=== PATIENT | female | born 1995 | race Two or more races ===

== ENCOUNTER 2016-08-02 17:19 | Emergency (ER) | payer OTHER ==
[2016-08-02] MEDS ORDERED: Pantoprazole IV* 40 MG IV ONE (17:36)
[2016-08-02] MEDS ORDERED: Sucralfate TAB* 1 GM PO ONE (17:36)
[2016-08-02 18:23] LABS: Hematocrit 42 % (35-47); Hemoglobin 13.8 g/dl (12.0-16.0); Mean Corpuscular HGB Conc 33 g/dl (31-36); Mean Corpuscular Hemoglobin 26 pg (27-31); Mean Corpuscular Volume 79 fL (80-97); Mean Platelet Volume 7 um3 (7.4-10.4); Red Blood Count 5.31 10^6/ul (4.0-5.4); Red Cell Distribution Width 14 % (10.5-15); White Blood Count 6.5 10^3/ul (3.5-10.8)
[2016-08-02 18:34] LABS: Urine Bacteria Absent (Absent); Urine Bilirubin 1+ (Negative); Urine Glucose Negative (Negative); Urine Nitrite Negative (Negative)
[2016-08-02 18:42] LABS: ALT 14 U/L (7-52); Albumin 4.5 g/dL (3.2-5.2); Alkaline Phosphatase 65 U/L (34-104); BUN/Creatinine Ratio 13.5 (8-20); Blood Urea Nitrogen 12 mg/dL (6-24); C Reactive Protein 3.05 mg/L (< 5.00); CO2 Carbon Dioxide 29 mmol/L (22-32); Calcium 9.8 mg/dL (8.6-10.3); Chloride 101 mmol/L (101-111); EGFR Non-African American 80.1 (>60); Globulin 3.8 g/dL (2-4); Glucose 95 mg/dL (70-100); Lipase 14 U/L (11.0-82.0); Sodium 135 mmol/L (133-145); Total Protein 8.3 g/dL (6.4-8.9)
--- NOTE | 2016-08-02 19:03 | ED ---
Luis Francisco Billy, scribed for Remigio Avina MD on 08/02/16 at 1735 . Abdominal Pain/Female - HPI Summary HPI Summary: Patient is a 20 year-old female coming to [facility] presenting with constant epigastric abdominal pain since midnight today. Pain severity 3/10. Patient states that the pain is worse with intermittent waves of cramping. Patient reports that her pain became noticeably worse at 1300 today. She reports intermittent nausea with 1x episode of vomiting today. She also states that she has been constipated for the last several days. Denies any diarrhea or urinary symptoms. Patient denies significant PMHx or PSHx relevant to her current symptoms. LMP ended 2 days ago, normal. - History of Current Complaint Chief Complaint: EDAbdPain Stated Complaint: ABD PAIN Time Seen by Provider: 08/02/16 17:27 Hx Obtained From: Patient Onset/Duration: Gradual Onset, Lasting Hours, Still Present, Worse Since - 1300 today Timing: Constant Severity Initially: Moderate Severity Currently: Moderate Pain Intensity: 3 Pain Scale Used: 0-10 Numeric Location: Epigastric Radiates: No Character: Cramping Aggravating Factor(s): Nothing Alleviating Factor(s): Nothing Associated Signs and Symptoms: Positive: Constipation, Nausea, Vomiting. Negative: Urinary Symptoms, Diarrhea Allergies/Adverse Reactions: Allergies Allergy/AdvReac Type Severity Reaction Status Date / Time No Known Allergies Allergy Verified 08/02/16 17:43 PMH/Surg Hx/FS Hx/Imm Hx Respiratory History: Reports: Hx Asthma Neurological History: Reports: Hx Migraine Infectious Disease History: No Infectious Disease History: Reports: Traveled Outside the [place] in Last 30 Days - [facility] - Family History Known Family History: Positive: Hypertension - Social History Occupation: Student Alcohol Use: None Hx Substance Use: No Substance Use Type: Reports: None Hx Tobacco Use: No Smoking Status (MU): Never Smoked Tobacco Review of Systems Positive: Abdominal Pain, Vomiting, Nausea, Other - constipation. Negative: Diarrhea Negative: dysuria, frequency, urgency All Other Systems Reviewed And Are Negative: Yes Physical Exam Triage Information Reviewed: Yes Vital Signs On Initial Exam: Initial Vitals Temp Pulse Resp BP Pulse Ox 98.8 F 82 18 129/71 100 08/02/16 17:22 08/02/16 17:22 08/02/16 17:22 08/02/16 17:22 08/02/16 17:22 Vital Signs Reviewed: Yes Appearance: Positive: Well-Appearing, No Pain Distress Skin: Positive: Warm, Skin Color Reflects Adequate Perfusion, Dry Head/Face: Positive: Normal Head/Face Inspection Eyes: Positive: Normal Neck: Positive: Supple, Nontender Respiratory/Lung Sounds: Positive: Clear to Auscultation, Breath Sounds Present Cardiovascular: Positive: RRR Abdomen Description: Positive: Soft, Other: - Tender in the epigastrium. Musculoskeletal: Positive: Normal Neurological: Positive: Normal Psychiatric: Positive: Normal, Affect/Mood Appropriate Diagnostics - Vital Signs Vital Signs Temp Pulse Resp BP Pulse Ox 08/02/16 17:22 98.8 F 82 18 129/71 100 - Laboratory Lab Results: Lab Results 08/02/16 08/02/16 08/02/16 Range/Units 18:15 18:15 18:15 WBC 6.5 (3.5-10.8) 10^3/ul RBC 5.31 (4.0-5.4) 10^6/ul Hgb 13.8 (12.0-16.0) g/dl Hct 42 (35-47) % MCV 79 L (80-97) fL MCH 26 L (27-31) pg MCHC 33 (31-36) g/dl RDW 14 (10.5-15) % Plt Count 454 H (150-450) 10^3/ul MPV 7 L (7.4-10.4) um3 Neut % (Auto) 41.3 (38-83) % Lymph % (Auto) 41.8 (25-47) % [place] % (Auto) 12.9 H (1-9) % Eos % (Auto) 2.9 (0-6) % Baso % (Auto) 1.1 (0-2) % Absolute Neuts (auto) 2.7 (1.5-7.7) 10^3/ul Absolute Lymphs (auto) 2.7 (1.0-4.8) 10^3/ul Absolute Monos (auto) 0.8 (0-0.8) 10^3/ul Absolute Eos (auto) 0.2 (0-0.6) 10^3/ul Absolute Basos (auto) 0.1 (0-0.2) 10^3/ul Absolute Nucleated RBC 0.01 10^3/ul Nucleated RBC % 0.1 Sodium 135 (133-145) mmol/L Potassium TNP Chloride 101 (101-111) mmol/L Carbon Dioxide 29 (22-32) mmol/L Anion Gap TNP BUN 12 (6-24) mg/dL Creatinine 0.89 (0.51-0.95) mg/dL Est GFR ( Amer) 103.0 (>60) Est GFR (Non-Af Amer) 80.1 (>60) BUN/Creatinine Ratio 13.5 (8-20) Glucose 95 (70-100) mg/dL Calcium 9.8 (8.6-10.3) mg/dL Total Bilirubin 0.40 (0.2-1.0) mg/dL AST TNP ALT 14 (7-52) U/L Alkaline Phosphatase 65 (34-104) U/L C-Reactive Protein 3.05 (< 5.00) mg/L Total Protein 8.3 (6.4-8.9) g/dL Albumin 4.5 (3.2-5.2) g/dL Globulin 3.8 (2-4) g/dL Albumin/Globulin Ratio 1.2 (1-3) Lipase 14 (11.0-82.0) U/L Beta HCG, Quant < 0.60 mIU/mL Urine Color Yellow Urine Appearance Cloudy Urine pH 6.0 (5-9) Ur Specific [place] 1.031 H (1.010-1.030) Urine Protein 1+(30 mg/dl) H (Negative) Urine Ketones Trace H (Negative) Urine Blood Negative (Negative) Urine Nitrate Negative (Negative) Urine Bilirubin 1+ H (Negative) Urine Urobilinogen Negative (Negative) Ur Leukocyte Esterase 2+ H (Negative) Urine WBC (Auto) Trace(0-5/hpf) (Absent) Urine RBC (Auto) 1+(3-5/hpf) H (Absent) Ur Squamous Epith Cells Present H (Absent) Urine Bacteria Absent (Absent) Urine Glucose Negative (Negative) Result Diagrams: 08/02/16 18:15 08/02/16 18:15 Lab Statement: Any lab studies that have been ordered have been reviewed, and results considered in the medical decision making process. Re-Evaluation - Re-Evaluation First Eval Re-Evaluation Time: 18:51 Change: Improved Abdominal Pain Fem Course/Dx - Course Course Of Treatment: Odlais Harrison presented C/O epigastric pain. Her W/U was normal and she got very significant releif with GI meds. I will give her a short course of sucralfate and recommend close F/U. - Diagnoses Provider Diagnoses: Epigastric pain Discharge - Discharge Plan Condition: Stable Disposition: HOME Prescriptions: Sucralfate TAB* [Carafate*] 1 gm PO QID #12 tab Patient Education Materials: Epigastric Pain (ED) Referrals: [facility] [Outside] The documentation as recorded by the Luis horne Billy accurately reflects the service I personally performed and the decisions made by me, Remigio Avina MD.
[2016-08-02 19:06] VITALS: BP 117/72
== END 2016-08-02 19:05 | disposition home or self-care (01) ==
LOC: ED 17:19
DX: R10.13 Epigastric pain (principal); R11.2 Nausea with vomiting, unspecified; K59.00 Constipation, unspecified
CPT/HCPCS: 36415; 80053; 81003; 81015; 83690; 84702; 85025; 86140; 87086; 99282; A9270-GY